=== PATIENT | male | born 1965 | race Caucasian/White ===

== ENCOUNTER 2019-07-24 19:18 | Emergency (ER) | payer BC ==
[~2019-07-24] VITALS: Ht 180.3 cm; Wt 115.2 kg
[2019-07-24 19:25] VITALS: Ht 180.3 cm; Wt 115.2 kg
[2019-07-24 21:45] VITALS: BP 154/84
== END 2019-07-24 21:46 | disposition home or self-care (01) ==
LOC: ED 19:18
DX: S81.811A Laceration without foreign body, right lower leg, initial encounter (principal); W26.0XXA Contact with knife, initial encounter; Y93.89 Activity, other specified; Y92.89 Other specified places as the place of occurrence of the external cause; Y99.8 Other external cause status
CPT/HCPCS: J2001